=== PATIENT | male | born 1980 | race Caucasian/White ===

== ENCOUNTER 2019-09-02 17:08 | Emergency (ER) | payer BC, SELFPAY ==
[~2019-09-02] VITALS: Ht 175.3 cm; Wt 65.6 kg
[2019-09-02 17:08] VITALS: BP 134/79
[2019-09-02] MEDS ORDERED: NORCO, ANEXSIA 5/325MG TABLET (HYDROcodone/ACETAMINOPHEN) PO ONE (17:45)
[2019-09-02] MEDS ORDERED: NORCO 5/325MG TABLET (BULK FOR ED) PO ONE (18:30)
[2019-09-02] MEDS ORDERED: NORC1TAB7 PO (18:32)
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
== END 2019-09-02 18:44 | disposition home or self-care (01) ==
LOC: M ED 17:08
DX: S42.033A Displaced fracture of lateral end of unspecified clavicle, initial encounter for closed fracture (principal); S20.229A Contusion of unspecified back wall of thorax, initial encounter; T14.8XXA Other injury of unspecified body region, initial encounter; Y04.0XXA Assault by unarmed brawl or fight, initial encounter; Y07.6 Multiple perpetrators of maltreatment and neglect; Y92.410 Unspecified street and highway as the place of occurrence of the external cause; Y93.89 Activity, other specified; Y99.8 Other external cause status; F17.200 Nicotine dependence, unspecified, uncomplicated